=== PATIENT | male | born 1990 | race Caucasian/White ===

== ENCOUNTER 2019-04-01 16:17 | Observation (INO) | payer OTHER ==
[2019-04-01] VITALS (8 sets, daily range): BP systolic 116–135; BP diastolic 61–77
[~2019-04-01] VITALS: Ht 175.3 cm; Wt 108.9 kg
[2019-04-01] MEDS ORDERED: AMPH20TA18 PO (16:27)
--- NOTE | 2019-04-01 16:29 | ER Report ---
History and Physical Time Seen By MD: 16:25 Hx. of Stated Complaint: rlq pain since last night HPI/ROS CHIEF COMPLAINT: Abdominal pain HISTORY OF PRESENT ILLNESS: This is a 28-year-old male who presents to the emergency department for abdominal pain per patient states that last night around 9:00 he developed a 20 of right-sided abdominal pain, was not too bad, remained about the same throughout today, however about 2 hours ago of the right lower quadrant pain began to intensify, developing nausea no vomiting. Last n ormal bowel movement was 2 hours ago. No fevers or chills. Denies chest pain or shortness of breath. Denies dysuria or flank pain. REVIEW OF SYSTEMS: Constitutional: No fever, no chills. Eyes: No discharge. ENT: No sore throat. Cardiovascular: No chest pain, no palpitations. Respiratory: No cough, no shortness of breath. Gastrointestinal: As above. Genitourinary: No hematuria. Musculoskeletal: No back pain. Skin: No rashes. Neurological: No headache. Allergies: Coded Allergies: No Known Drug Allergies (Unverified , 04/01/19) Home Meds Reported Medications Amphet Asp/Amphet/D-Amphet (ADDERALL 20 MG TABLET) 20 Mg Tablet, 20 MG PO 04/01/19 Past Medical/Surgical History Patient has no significant past medical or surgical history. Reviewed Nurses Notes: Yes Constitutional Vital Sign - Last 24 Hours 04/01/19 04/01/19 04/01/19 04/01/19 16:24 16:30 17:00 17:30 Temp 98.2 Pulse 97 95 88 94 Resp 20 B/P (MAP) 147/93 Pulse Ox 91 91 89 93 Physical Exam General Appearance: The patient is alert, has no immediate need for airway protection and no signs of toxicity. Eyes: Pupils equal and round no pallor or injection. ENT, Mouth: Mucous membranes are moist. Respiratory: There are no retractions, lungs are clear to auscultation. Cardiovascular: Regular rate and rhythm. No murmurs, clicks or rubs. Gastrointestinal: Abdomen is soft, tenderness over McBurney's point, positive rebound tenderness in the right lower quadrant, positive psoas sign, negative Hawkins sign. no masses, bowel sounds normal. Neurological: Alert and oriented 4. Moving all extremities. Following all commands. No focal neuro deficits. Skin: Warm and dry, no rashes. Musculoskeletal: Neck is supple non tender. Extremities are nontender, nonswollen and have full range of motion. DIFFERENTIAL DIAGNOSIS: After history and physical exam differential diagnosis was considered for abdominal pain including but not limited to appendicitis, cholecystitis, gastritis and urinary tract infection. Medical Decision Making Data Points Result Diagram: 04/01/19 1632 04/01/19 1632 Laboratory Hematology Test 04/01/19 16:32 Red Blood Count 5.77 M/uL (4.00-5.60) Mean Corpuscular Volume 88.4 fL (80.0-96.0) Mean Corpuscular Hemoglobin 30.2 pg (26.0-33.0) Mean Corpuscular Hemoglobin Concent 34.2 g/dL (32.0-36.0) Red Cell Distribution Width 13.3 % (11.5-14.5) Mean Platelet Volume 8.2 fL (7.2-11.1) Neutrophils (%) (Auto) 76.4 % (39.4-72.5) Lymphocytes (%) (Auto) 13.0 % (17.6-49.6) Monocytes (%) (Auto) 9.3 % (4.1-12.4) Eosinophils (%) (Auto) 0.6 % (0.4-6.7) Basophils (%) (Auto) 0.7 % (0.3-1.4) Nucleated RBC Relative Count (auto) 0.0 /100WBC Neutrophils # (Auto) 10.3 K/uL (2.0-7.4) Lymphocytes # (Auto) 1.8 K/uL (1.3-3.6) Monocytes # (Auto) 1.3 K/uL (0.3-1.0) Eosinophils # (Auto) 0.1 K/uL (0.0-0.5) Basophils # (Auto) 0.1 K/uL (0.0-0.1) Nucleated RBC Absolute Count (auto) 0.00 K/uL Sodium Level 140 mmol/L (137-145) Potassium Level 4.0 mmol/L (3.5-5.0) Chloride Level 102 mmol/L (98-107) Carbon Dioxide Level 23 mmol/L (22-30) Blood Urea Nitrogen 11 mg/dl (9-21) Creatinine 1.00 mg/dl (0.66-1.25) Glomerular Filtration Rate Calc > 60.0 Random Glucose 98 mg/dl (75-110) Calcium Level 9.7 mg/dl (8.4-10.2) Total Bilirubin 0.9 mg/dl (0.2-1.3) Aspartate Amino Transf (AST/SGOT) 26 U/L (0-35) Alanine Aminotransferase (ALT/SGPT) 50 U/L (0-56) Alkaline Phosphatase 75 U/L (0-126) Total Protein 8.0 g/dl (6.3-8.2) Albumin 4.7 g/dl (3.5-5.0) Chemistry Test 04/01/19 16:32 White Blood Count 13.5 k/uL (4.5-11.0) Red Blood Count 5.77 M/uL (4.00-5.60) Hemoglobin 17.4 g/dL (14.0-18.0) Hematocrit 51.0 % (42.0-52.0) Mean Corpuscular Volume 88.4 fL (80.0-96.0) Mean Corpuscular Hemoglobin 30.2 pg (26.0-33.0) Mean Corpuscular Hemoglobin Concent 34.2 g/dL (32.0-36.0) Red Cell Distribution Width 13.3 % (11.5-14.5) Platelet Count 266 K/uL (150-450) Mean Platelet Volume 8.2 fL (7.2-11.1) Neutrophils (%) (Auto) 76.4 % (39.4-72.5) Lymphocytes (%) (Auto) 13.0 % (17.6-49.6) Monocytes (%) (Auto) 9.3 % (4.1-12.4) Eosinophils (%) (Auto) 0.6 % (0.4-6.7) Basophils (%) (Auto) 0.7 % (0.3-1.4) Nucleated RBC Relative Count (auto) 0.0 /100WBC Neutrophils # (Auto) 10.3 K/uL (2.0-7.4) Lymphocytes # (Auto) 1.8 K/uL (1.3-3.6) Monocytes # (Auto) 1.3 K/uL (0.3-1.0) Eosinophils # (Auto) 0.1 K/uL (0.0-0.5) Basophils # (Auto) 0.1 K/uL (0.0-0.1) Nucleated RBC Absolute Count (auto) 0.00 K/uL Glomerular Filtration Rate Calc > 60.0 Calcium Level 9.7 mg/dl (8.4-10.2) Total Bilirubin 0.9 mg/dl (0.2-1.3) Aspartate Amino Transf (AST/SGOT) 26 U/L (0-35) Alanine Aminotransferase (ALT/SGPT) 50 U/L (0-56) Alkaline Phosphatase 75 U/L (0-126) Total Protein 8.0 g/dl (6.3-8.2) Albumin 4.7 g/dl (3.5-5.0) Urinalysis Test 04/01/19 16:32 EKG/Imaging Imaging PATIENT NAME: Scottie Patterson : 1990 MR: [id number] V: [id number] EXAM DATE: ORDERING PHYSICIAN: PEE ALFARO TECHNOLOGIST: Location[place] [facility] [place] Patient: Scottie Patterson : 1990 Visit/Account:[id number] Date of Sevice: 04/01/2019 CT ABDOMEN PELVIS W/ CON HISTORY: RLQ pain TECHNIQUE: Following administration of IV contrast contiguous axial images acquired through the abdomen/pelvis. Coronal and sagittal reformatting also performed.Dose Lowering Technique One of the following dose optimization techniques was utilized in the performance of this exam: Automated exposure control; adjustment of the mA and/or kV according to the patient's size; or use of an iterative reconstruction technique. Specific details can be referenced in the facility's radiology CT exam operational policy. CONTRAST: 75 mL Isovue-370 COMPARISON: None. FINDINGS: Visualized lung bases: Negative. Hepatobiliary: Negative. Spleen: Negative. Adrenals: Negative. Pancreas: Negative. Kidneys ureters or bladder: Round subcentimeter hypodensity upper pole of the left kidney likely represents a cyst although is too small to characterize. Genitalia: Negative. GI: The appendix is markedly dilated, fluid-filled with thickening and enhancement of its wall. The appendix measures up to 1.6 cm in diameter. There is a 7 mm appendicolith. There are infiltrative changes seen in the periappendiceal fat and a small amount of adjacent fluid in the right paracolic gutter. Free intraperitoneal air is not identified. An organized abscess is not seen. Vessels/spaces/nodes: There several mildly prominent mesenteric lymph nodes in the right lower quadrant likely reactive. A telephone claims representative node measures 1.4 x 0.7 cm Bones/soft tissues: Negative. Additional findings: None pertinent. IMPRESSION: Findings are consistent with acute appendicitis as detailed above. There is a small amount of adjacent fluid in the right paracolic gutter although a defined abscess is not seen. There is also no evidence of free intraperitoneal air. There are several mildly prominent mesenteric lymph nodes the right lower quadrant which are likely reactive. Results were called to PEE ALFARO at 04/01/2019 5:13 PM. Report Dictated By: Amna Johnson MD at 04/01/2019 5:09 PM Report E-Signed By: Amna Johnson MD at 04/01/2019 5:21 PM WSN:GLADYS ED Course/Re-evaluation Clinical Indication for ER IV: Hydration, IV Access ED Course Patient was admitted to room. A history and physical were obtained. Differential diagnoses were considered. An IV was started. A CBC, CMP, UA were collected. A C T of the abdomen and pelvis positive for an acute appendicitis. CBC showing white count of 13.5 with a left shift. Chemistry unremarkable, negative UA. I did review the results with the patient. I also contacted Dr. Alba, the general surgeon on-call as noted below, she is accepting the patient and he will be taken directly to the operating room for acute appendicitis. 04/01/2019 5:17:59 pm I did speak with radiology, patient was positive for appendicitis. I did speak with patient. I have call out to Dr. Alba, the general surgeon on-call. Last fluid intake was about one hour ago, last food intake was around 8:30 this morning. 04/01/2019 5:26:46 pm I did speak with Dr. Alba, the general surgeon on-call we did review the case, she will be in shortly to evaluate the patient, and likely take the patient to surgery. 04/01/2019 5:49:[address] Alba is here, she is discussing surgery with the patient. Decision to Disposition Date: Apr 01, 2019 Decision to Disposition Time: 18:04 Depart Departure Latest Vital Signs Vital Signs Date Time Temp Pulse Resp B/P (MAP) Pulse Ox O2 Delivery O2 Flow Rate FiO2 04/01/19 17:30 94 93 04/01/19 16:24 98.2 20 147/93 Impression: Primary Impression: Acute appendicitis Condition: Improved Disposition: ADMIT FROM ER TO OR Problem Qualifiers Primary Impression: Acute appendicitis Acute appendicitis type: with localized peritonitis Appendicitis gangrene presence: without gangrene Appendicitis perforation presence: without perforation Appendicitis abscess presence: without abscess Qualified Codes: K35.30 - Acute appendicitis with localized peritonitis, without perforation or gangrene PEE ALFARO-CARLITA Apr 01, 2019 16:29
[2019-04-01] MEDS ORDERED: NS(*) 0.9% 1000 ML BAG 1,000 ML IV ONE (16:42)
[2019-04-01] MEDS ORDERED: MORPHINE 4 MG/ML SDV IVP ONE (16:45)
[2019-04-01] MEDS ORDERED: ONDANSETRON 4 MG/2 ML VIAL IVP ONE (16:45)
[2019-04-01] MEDS ORDERED: IOPAMIDOL 76% 100 ML INFUS BTL 100 ML ONE (16:57)
[2019-04-01 17:00] LABS: PLATELET COUNT, AUTOMATED 266 K/uL (150-450)
--- NOTE | 2019-04-01 17:24 | RADIOLOGY IMAGING REPORT ---
FACILITY: [facility] PATIENT NAME: Scottie Patterson : 1990 MR: [id number] V: [id number] EXAM DATE: ORDERING PHYSICIAN: PEE ALFARO TECHNOLOGIST: Location: [facility] Patient: Scottie Patterson : 1990 Visit/Account:[id number] Date of Sevice: 04/01/2019 CT ABDOMEN PELVIS W/ CON HISTORY: RLQ pain TECHNIQUE: Following administration of IV contrast contiguous axial images acquired through the abdom en/pelvis. Coronal and sagittal reformatting also performed.Dose Lowering Technique One of the following dose optimization techniques was utilized in the performance of this exam: Autom ated exposure control; adjustment of the mA and/or kV according to the patient's size; or use of an i terative reconstruction technique. Specific details can be referenced in the facility's radiology C T exam operational policy. CONTRAST: 75 mL Isovue-370 COMPARISON: None. FINDINGS: Visualized lung bases: Negative. Hepatobiliary: Negative. Spleen: Negative. Adrenals: Negative. Pancreas: Negative. Kidneys ureters or bladder: Round subcentimeter hypodensity upper pole of the left kidney likely repr esents a cyst although is too small to characterize. Genitalia: Negative. GI: The appendix is markedly dilated, fluid-filled with thickening and enhancement of its wall. The appendix measures up to 1.6 cm in diameter. There is a 7 mm appendicolith. There are infiltrative changes seen in the periappendiceal fat and a small amount of adjacent fluid in the right paracolic g utter. Free intraperitoneal air is not identified. An organized abscess is not seen. Vessels/spaces/nodes: There several mildly prominent mesenteric lymph nodes in the right lower quadr ant likely reactive. A hobbies and crafts sales representative node measures 1.4 x 0.7 cm Bones/soft tissues: Negative. Additional findings: None pertinent. IMPRESSION: Findings are consistent with acute appendicitis as detailed above. There is a small amount of adjace nt fluid in the right paracolic gutter although a defined abscess is not seen. There is also no evid ence of free intraperitoneal air. There are several mildly prominent mesenteric lymph nodes the right lower quadrant which are likely r eactive. Results were called to PEE ALFARO at 04/01/2019 5:13 PM. Report Dictated By: Amna Johnson MD at 04/01/2019 5:09 PM Report E-Signed By: Amna Johnson MD at 04/01/2019 5:21 PM WSN:[email or web address]
[2019-04-01] MEDS ORDERED: PIPERACILLIN/TAZO*3.375GM VIAL 3.375 GM in NS(*) 0.9% 100 ML MINI-BAG 100 ML IVPB ONE (17:35)
[2019-04-01] MEDS ORDERED: FAMOTIDINE(*) 20MG/50ML PREMIX 50 ML IVPB ONE (17:45)
[2019-04-01] MEDS ORDERED: NORMOSOL R SOLN(*) 1000 ML BAG 1,000 ML IV ONE (17:45)
[2019-04-01] MEDS ORDERED: ROCURONIUM BROM 10 MG/ML 10 ML ONE (17:56)
[2019-04-01] MEDS ORDERED: ONDANSETRON 4 MG/2 ML VIAL ONE (17:56)
[2019-04-01] MEDS ORDERED: fentaNYL CITR 250 MCG/5 ML AMP ONE (17:56)
[2019-04-01] MEDS ORDERED: DEXAMETHASONE SOD 4 MG/ML VIAL ONE (17:56)
[2019-04-01] MEDS ORDERED: PROPOFOL EMUL(*) 10MG/ML 20 ML 20 ML ONE (17:56)
[2019-04-01] MEDS ORDERED: SUGAMMADEX SOD 200 MG/2 ML SDV ONE ×2 (17:56→19:31)
[2019-04-01] MEDS ORDERED: LIDOCAINE MPF 1% 5 ML VIAL ONE (17:56)
[2019-04-01] MEDS ORDERED: KETAMINE HCL 200 MG/20 ML MDV ONE (17:59)
--- NOTE | 2019-04-01 18:06 | Gen Surgery History & Physical ---
History of Present Illness Chief Complaint RLQ abdominal pain History of Present Illness 28 yo male with 24 hours of increasingly severe RLQ abdominal pain. +NV, no D. +FCS. No s/s. Pain exacerbated with movement. No prior similar s/s. No hx PUD, IBD. History Unable To Obtain Past Medical: Home Meds Reported Medications Amphet Asp/Amphet/D-Amphet (ADDERALL 20 MG TABLET) 20 Mg Tablet, 20 MG PO 04/01/19 Allergies: Coded Allergies: No Known Drug Allergies (Unverified , 04/01/19) Review of Systems All Systems Reviewed/Normal: Yes, Except as Noted Gastrointestinal: Other (se HPI) Exam General Appearance: Alert, Awake, No Acute Distress, Afebrile Neuro: No Gross deficits ENT: Normal Neck: No Masses Cardiovascular: Normal Rhythm & Peripheral Pulses, Regular Rate and Rhythm, No Edema, No JVD Respiratory: No Respiratory Distress, Clear to Auscultation GI: Other (soft, ++ RLQ peritoneal signs with + guard. No mass or hernia.) Musculoskeletal: No Weakness/Pain Extremities: Soft and Non Tender, Warm, Pulses, Perfused Integumentary: Skin Intact without Lesion / Mass Psych: Alert & Oriented X3, Appropriate Mood & Affect Medical Decision Making Data Points Result Diagram: 04/01/19 1632 04/01/19 1632 EKG / Imaging Monitor Interpretation: Normal Sinus Rhythm Pre-Admit Course Medical Record Review: Yes Assessment and Plan Problems: (1) Appendicitis, acute Status: Acute Assessment & Plan: 28 yo male with acute appendicitis. He has been recommended to undergo lap, possible open, appendectomy. Proc, risks, benefits, alternative treatment discussed at length. He understands risk of bleeding, leak, abscess, damage to viscera, need for additional intervention. All questions answered. Informed consent signed. Time Spent: > 30 min Venous Thromboembolism VTE Risk Physician Assess for VTE Risk: Yes Patient's VTE Risk: Low VTE Diagnostic Test 2 Days Prior to Admit: No Antithrombotics Is Pt On Any Antithrombotics?: No CHARLEY ARAIZA MD Apr 01, 2019 18:05
[2019-04-01] MEDS ORDERED: BUPIVACAIN 0.25% INJ 50ML VIAL ONE (18:09)
[2019-04-01] MEDS: PIPERACILLIN/TAZO*3.375GM VIAL 3.375 GM in NS(*) 0.9% 100 ML MINI-BAG 100 ML IVPB SCH ×2 (18:10→23:19)
[2019-04-01] MEDS ORDERED: ESMOLOL 10 MG/ML 10ML SDV ONE (19:31)
[2019-04-01] MEDS ORDERED: fentaNYL CITR 100 MCG/2 ML AMP ONE ×3 (19:32→20:19)
--- NOTE | 2019-04-01 20:09 | Post Operative Progress Note ---
Post Operative Progress Note Date: Apr 01, 2019 Time: 20:01 Surgeon: Charley Alba MD [facility] Hogshead Opener: none Anesthesia: Nash Rand MD GET Pre-Op Diagnosis: acute appendicitis Post-Op Diagnosis: same Findings: significant inflammation with agustin pus, dense adhesions to retroperitoneum/retrocecal; Mesoappendix with marked edema > 2 X 2.5 cm Procedure(s): Laparoscopic appendectomy Specimen Removed:(May be N/A): appendix Complications: none Total Tourniquet Time: NA Splint: NA Fluids: see anesthesia record Estimated Blood Loss: < 25 ml Date OP Note Dictated: Apr 01, 2019 Time OP Note Dictated: 20:04 ([id number]) CHARLEY ALBA MD Apr 01, 2019 20:09
[2019-04-01] MEDS ORDERED: KCL/D1/2NS 20 MEQ 1000 ML 1,000 ML IV PRN (20:11)
[2019-04-01] MEDS ORDERED: ACETAMINOPHEN 325 MG TAB PO PRN (20:15)
[2019-04-01] MEDS ORDERED: ONDANSETRON 4 MG/2 ML VIAL IVP PRN ×2 (20:15→22:50)
[2019-04-01] MEDS ORDERED: APAP/HYDROCODONE 325/5 TAB PO PRN (20:15)
[2019-04-01] MEDS ORDERED: NALOXONE HCL 0.4 MG/ML VIAL IVP PRN (20:15)
[2019-04-01] MEDS ORDERED: PROMETHAZINE 25 MG/ML 1 ML AMP ONE (20:20)
[2019-04-01] MEDS ORDERED: MORPHINE 4 MG/ML SDV IVP PRN (22:40)
[2019-04-01] MEDS ORDERED: SUMA25TA26 PO (23:08)
[2019-04-01] MEDS ORDERED: CYCL10TA29 PO (23:10)
[2019-04-01] MEDS: traMADol 50 MG TAB PO PRN (23:17)
[2019-04-02] VITALS: BP 112/66
[2019-04-02] MEDS ORDERED: PIPERACILLIN/TAZO*3.375GM VIAL 3.375 GM in NS(*) 0.9% 100 ML MINI-BAG 100 ML IVPB SCH
[2019-04-02 01:00] VITALS: BP 101/56
--- NOTE | 2019-04-02 01:40 | OPERATIVE REPORT 1 ---
EVENT DATE: April 01, 2019 SURGEON: Ashwini Alba MD, [facility] ANESTHESIOLOGIST: Nash Rand MD ANESTHESIA: General endotracheal anesthesia. PREOPERATIVE DIAGNOSIS Acute appendicitis. POSTOPERATIVE DIAGNOSIS Acute appendicitis. PROCEDURE PERFORMED Laparoscopic appendectomy. INDICATIONS FOR PROCEDURE This patient is a 28-year-old male with peritoneal signs in the right lower quadrant, with markedly abnormal appendix on abdominal CT scan. He was brought to the emergency room at this time for appendectomy. FINDINGS AT THE TIME OF OPERATION The patient had marked inflammation and induration with acute suppurative appendicitis, with agustin pus in the right lower quadrant. The appendix was densely adherent to the retroperitoneum in a retrocecal position. The mesoappendix was markedly inflamed, measuring over 2 x 2.5 x 2 cm. No agustin perforation was identified of the appendix. DESCRIPTION OF PROCEDURE On 04/01/2019, patient was brought to the operating room, placed in the supine position. Appropriate lines and monitors were placed. He was induced and intubated under general anesthesia without difficulty. He was then prepped and draped in the usual sterile manner. Pneumoperitoneum was established at the infraumbilical position using standard open technique. Skin, subcutaneous and fascial tissues were divided under direct vision using sharp dissection. The peritoneal cavity was entered under direct vision, and a 10 mm Len trocar was inserted. Under direct vision, two additional trocars were placed, a 5 mm along the right lower midline and a 12 mm in the right upper quadrant. The patient was then placed in the Trendelenburg position. The markedly abnormal appendix was identified and dissected free from its position within the right lower quadrant/retroperitoneum using a combination of sharp as well as blunt dissection. The mesoappendix was opened immediately adjacent to the base of the appendix and divided at this level with the laparoscopic bowel stapler. The mesoappendix itself was then divided with two firings of a laparoscopic vascular staple. The appendix was placed in the Endopouch and removed through the abdominal cavity. The fascia at the right upper quadrant incision required significant extension as well as a skin incision to remove the enlarged specimen. Once it was completed, the mesoappendix required several Ligaclips for hemostasis. The operative field was irrigated copiously with sterile saline, and hemostasis was intact. The fascia at the right upper quadrant was closed with two 0 Vicryl sutures placed with the Conner-Neda device. All trocars were removed under direct vision. The sites were hemostatic. Pneumoperitoneum was evacuated. The fascia at the infraumbilical site was closed with two stay sutures of #1 Vicryl. The wounds were irrigated with sterile saline. The wounds were then infiltrated with 40 mL of 0.25% Marcaine. Skin edges were reapproximated with running subcuticular 4-0 PDS. Wounds were dressed with Mastisol, Steri-Strips and dry sterile gauze. Patient was then taken to the recovery room in stable condition. He tolerated the procedure well. Estimated blood loss was less than 20 mL. Final sponge and needle counts were reported correct x2. MTDD
[2019-04-02 02:00] VITALS: BP 102/63
[2019-04-02 05:29] LABS: PLATELET COUNT, AUTOMATED 233 K/uL (150-450)
[2019-04-02] MEDS: traMADol 50 MG TAB PO PRN ×2 (05:36→12:00)
[2019-04-02] MEDS: PIPERACILLIN/TAZO*3.375GM VIAL 3.375 GM in NS(*) 0.9% 100 ML MINI-BAG 100 ML IVPB SCH ×2 (05:38→13:01)
[2019-04-02] MEDS ORDERED: DOCU-416 PO (07:03)
[2019-04-02] MEDS ORDERED: TRAM-420 PO (07:03)
--- NOTE | 2019-04-02 07:06 | Short(Outpt) Discharge Summary ---
Discharge Summary Reason for Hosp/Final Diag: (1) Appendicitis, acute Status: Acute Hospital Course & Plan: 28 yo male with acute appendicitis. He has been recommended to undergo lap, possible open, appendectomy. Proc, risks, benefits, alternative treatment discussed at length. He understands risk of bleeding, leak, abscess, damage to viscera, need for additional intervention. All questions answered. Informed consent signed. 04/02/19: POD#1 s/p lap appy. Doing well. Regular diet. 1 more dose of IV abx then stop. D/C to home later today if remains afebrile and tolerating diet. Departure Discharge to: Home, Self Care Discharge Instructions Home Meds Active Scripts Docusate Sodium (COLACE) 100 Mg Capsule, 1 CAP PO BID, #30 CAP 0 Refills TAKE WITH A FULL GLASS OF WATER Prov:MICHELE BARRETT MD 04/02/19 Tramadol Hcl (TRAMADOL HCL) 50 Mg Tablet, 1 TAB PO Q4H PRN for PAIN, #14 TAB 0 Refills Prov:MICHELE BARRETT MD 04/02/19 Reported Medications Cyclobenzaprine Hcl (CYCLOBENZAPRINE HCL) 10 Mg Tablet, 10 MG PO PRN 04/01/19 Sumatriptan Succinate (IMITREX) 25 Mg Tablet, 25 MG PO ONCE 04/01/19 Amphet Asp/Amphet/D-Amphet (ADDERALL 20 MG TABLET) 20 Mg Tablet, 20 MG PO QDAY 04/01/19 Follow up Referrals: General Surgery - 04/10/19 @ Surgery, General with MICHELE BARRETT MD You have a follow up appointment scheduled with Dr. Barrett on 04/10/19, at 11:45am. Diet: Regular Activity: As Tolerated Special Instructions: You may remove the white surgical dressings on 04/03/19, then you can shower. After showering, leave the incisions open to air but leave the steristrips in place until they fall off on their own. Do not immerse the incisions for 2 weeks. Copies to: CHARLEY ARAIZA MD ; Problem Qualifiers (1) Appendicitis, acute: Acute appendicitis type: with localized peritonitis Appendicitis gangrene presence: without gangrene Appendicitis perforation presence: without perforation Appendicitis abscess presence: without abscess Qualified Codes: K35.30 - Acute appendicitis with localized peritonitis, without perforation or gangrene MICHELE BARRETT MD Apr 02, 2019 07:06
[2019-04-02 07:19] VITALS: BP 114/62
[2019-04-02 07:23] VITALS: Ht 175.3 cm; Wt 108.9 kg
[2019-04-02 12:49] VITALS: BP 111/73
== END 2019-04-02 13:14 | disposition home or self-care (01) ==
LOC: EDBD 16:17 → ER 16:25 → OR 17:55 → MED 21:05
PROVIDERS: ADMIT Surgery; ATTEND Surgery
DX: K35.30 Acute appendicitis with localized peritonitis, without perforation or gangrene (principal)
CPT/HCPCS: 36415; 44970; 74177; 81001; 85025; 88304; 96361; 96365; 96375; 99284; G0378; J1100; J2001; J2270; J2405; J2543; J2550; J2704; J3010; J3480; J3490; J7030; Q9967; 82040; 82247; 82310; 82374; 82435; 82565; 82947; 84075; 84132; 84155; 84295; 84450; 84460; 84520

== ENCOUNTER 2019-04-02 21:41 | Observation (INO) | payer OTHER ==
[~2019-04-02] VITALS: Ht 175.3 cm; Wt 108.9 kg
[~2019-04-02 21:41] MED LIST: AMPH20TA18 PO; CYCL10TA29 PO; DOCU-416 PO; SUMA25TA26 PO; TRAM-420 PO
--- NOTE | 2019-04-02 21:43 | ER Report ---
History and Physical Time Seen By MD: 21:43 HPI/ROS CHIEF COMPLAINT: Abdominal pain, cramps, difficulty breathing HISTORY OF PRESENT ILLNESS: 28-year-old male who was 1 day postop from a laproscopic appendectomy performed by Dr. Doug Alba who was discharged yesterday around 2 PM. Patient did not get his prescriptions filled. Patient states she did a moderate amount of walking yesterday around release. Tonight he developed severe crampy abdominal pain with abdominal distention. He's had no bowel movement or passed no gas since he left the hospital. He states his last meal was biscuits and gravy yesterday morning prior to discharge. REVIEW OF SYSTEMS: Respiratory: No cough, no dyspnea. Cardiovascular: No chest pain, no palpitations. Gastrointestinal: As above Musculoskeletal: No back pain. Allergies: Coded Allergies: No Known Drug Allergies (Unverified , 04/02/19) Home Meds Active Scripts Docusate Sodium (COLACE) 100 Mg Capsule, 1 CAP PO BID, #30 CAP 0 Refills TAKE WITH A FULL GLASS OF WATER Prov:MICHELE BARRETT MD 04/02/19 Tramadol Hcl (TRAMADOL HCL) 50 Mg Tablet, 1 TAB PO Q4H PRN for PAIN, #14 TAB 0 Refills Prov:MICHELE BARRETT MD 04/02/19 Reported Medications Cyclobenzaprine Hcl (CYCLOBENZAPRINE HCL) 10 Mg Tablet, 10 MG PO PRN 04/01/19 Sumatriptan Succinate (IMITREX) 25 Mg Tablet, 25 MG PO ONCE PRN for MIGRAINE 04/01/19 Amphet Asp/Amphet/D-Amphet (ADDERALL 20 MG TABLET) 20 Mg Tablet, 20 MG PO QDAY 04/01/19 Reviewed Nurses Notes: Yes Old Medical Records Reviewed: Yes Hx Smoking: Yes Smoking Status: Current: Every Day Smoker Hx Alcohol Use: Yes Constitutional Vital Sign - Last 24 Hours 04/02/19 04/02/19 04/02/19 04/02/19 21:48 21:48 22:00 22:11 Temp 98.8 Pulse 89 80 Resp 14 B/P (MAP) 141/85 128/74 (92) Pulse Ox 84 94 O2 Delivery Room Air O2 Flow Rate 2.0 6/13/19 6/13/19 6/13/19 6/13/19 22:40 22:41 22:46 23:00 Pulse 72 58 B/P (MAP) 114/65 (81) 121/68 (85) Pulse Ox 96 96 04/02/19 04/02/19 04/02/19 04/02/19 23:01 23:16 23:30 23:31 Pulse 60 60 74 B/P (MAP) 123/71 (88) Pulse Ox 97 97 91 04/02/19 04/02/19 04/02/19 04/02/19 23:46 23:50 23:50 23:57 Pulse 82 86 97 Resp 18 18 Pulse Ox 74 92 O2 Delivery Room Air 04/03/19 04/03/19 04/03/19 04/03/19 00:00 00:01 00:06 00:21 Pulse 87 92 78 B/P (MAP) 120/81 (94) Pulse Ox 94 93 96 Physical Exam Vital signs stable, pulse ox 84% on room air, patient with obvious splinting secondary to abdominal distention., Slightly pale appearing, skin warm and dry General Appearance: The patient is alert, has no immediate need for airway protection and no current signs of toxicity. Moderate distress HEENT: Pupils equal and round no injection. Oropharynx without redness or exudate Respiratory: Chest is non tender, lungs are clear to auscultation. Cardiac: regular rate and rhythm Gastrointestinal: Abdomen is soft, moderate distention, moderate tenderness, no masses, bowel sounds normal. Incisions intact without induration, redness Musculoskeletal: Neck: Neck is supple and non tender. Extremities have full range of motion and are non tender. Skin: No rashes or lesions. DIFFERENTIAL DIAGNOSIS: After history and physical exam differential diagnosis was considered for abdominal pain including but not limited to appendicitis, cholecystitis, gastritis and urinary tract infection. Postoperative infection, postoperative ileus, postoperative complications Medical Decision Making Data Points Result Diagram: 04/04/1952504/04/19525 Laboratory Hematology Test 04/02/19 21:57 Lactate 1.1 mmol/L (0.7-2.1) Total Bilirubin 0.6 mg/dl (0.2-1.3) Aspartate Amino Transf (AST/SGOT) 28 U/L (0-35) Alanine Aminotransferase (ALT/SGPT) 39 U/L (0-56) Alkaline Phosphatase 55 U/L (0-126) Total Protein 7.2 g/dl (6.3-8.2) Albumin 4.0 g/dl (3.5-5.0) Amylase Level 89 U/L (0-110) Lipase 35 U/L (23-300) Chemistry Test 04/02/19 21:57 Lactate 1.1 mmol/L (0.7-2.1) Total Bilirubin 0.6 mg/dl (0.2-1.3) Aspartate Amino Transf (AST/SGOT) 28 U/L (0-35) Alanine Aminotransferase (ALT/SGPT) 39 U/L (0-56) Alkaline Phosphatase 55 U/L (0-126) Total Protein 7.2 g/dl (6.3-8.2) Albumin 4.0 g/dl (3.5-5.0) Amylase Level 89 U/L (0-110) Lipase 35 U/L (23-300) EKG/Imaging Imaging Results: CT scan of the abdomen and pelvis with IV contrast was obtained. The results of the study are CT ABDOMEN PELVIS W/ CON HISTORY: Status post laparoscopic appendectomy April 01. Now with severe lower abdominal pain. No bowel movement since surgery and very little flatulence. COMPARISON: 04/01/2019. TECHNIQUE: Axial images were obtained from the lung bases through the symphysis pubis with intravenous contrast. Sagittal and coronal reformats were performed. One of the following dose optimization techniques was utilized in the performance of this exam: Automated exposure control; adjustment of the mA and/or kV according to the patient's size; or use of an iterative reconstruction technique. Specific details can be referenced in the facility's radiology CT exam operational policy. CONTRAST: 75 mL IV Isovue-370. FINDINGS: LOWER CHEST: There is mild bibasilar atelectasis. Trace left pleural effusion. LIVER: Normal. GALLBLADDER/BILIARY: Normal. PANCREAS: Normal. SPLEEN: Normal. ADRENALS: Normal. KIDNEYS/URETERS/BLADDER: There is a 1 cm left anterior mid renal cyst. Right kidney is normal. Ureters and bladder are normal. GI/MESENTERY/PERITONEAL CAVITY: There is a moderate to large amount of stool in the cecum and the proximal ascending colon. There is a paucity of stool in the rest of the colon. There is diffuse gaseous distention of colon. There is no bowel obstruction. There is no wall thickening or pericolonic stranding. Status post appendectomy. There is trace free fluid in the right lower quadrant. There is a small amount of intra-abdominal free air related to recent surgery. No abscess or drainable fluid collection. VESSELS: No atherosclerotic disease. No aneurysm. No dissection. NODES: Normal. PELVIS: There are scattered phleboliths. BONES/VERTEBRA/SOFT TISSUES: There are a few Schmorl nodes. There is mild degenerative change of the spine. IMPRESSION: 1. Small amount of pneumoperitoneum and trace free fluid in the right lower qu adrant, compatible with recent surgery. No abscess or drainable fluid collection. 2. There is a moderate to large amount of stool in the cecum and proximal ascending colon, and there is gaseous distention of colon. No bowel obstruction. The study was read by the radiologist. I viewed the images myself on the PACS system. ED Course/Re-evaluation Clinical Indication for ER IV: Hydration, IV Access ED Course Patient was admitted to an examination room. H&P was done. The differential diagnosis was considered. Patient with acute abdominal pain, sharp, crampy abdominal pain with pain on inspiration. Vital signs stable, afebrile, patient was treated with IV fluids, Zofran, fentanyl. Diagnostic evaluation shows an elevated white blood cell count of 14,000. Only slightly elevated from what he had prior to discharge. A CT scan of the abdomen and pelvis with contrast was performed to rule out postoperative complications. It showed appropriate postoperative changes. There was no evidence of abscess formation or free air that's in excess, old be expected. Patient was mildly hypoxic. I think mostly from splinting. I do not think he has a pulmonary embolism. Patient was given a DuoNeb. 04/03/2019 12:20:10 am case discussed with Dr. Winkler, general surgery on-call, who would like the patient admitted. Brief holding orders were written. Decision to Disposition Date: Apr 02, 2019 Decision to Disposition Time: 23:12 Depart Departure Latest Vital Signs Vital Signs Date Time Temp Pulse Resp B/P (MAP) Pulse Ox O2 Delivery O2 Flow Rate FiO2 04/03/19 00:21 78 96 04/03/19 00:00 120/81 (94) 04/02/19 23:57 18 04/02/19 23:50 Room Air 04/02/19 21:48 98.8 04/02/19 21:48 2.0 Impression: Primary Impression: Abdominal pain Additional Impressions: Status post appendectomy Ileus following gastrointestinal surgery Condition: Improved Disposition: Admitted from ER Problem Qualifiers Primary Impression: Abdominal pain Abdominal location: lower abdomen, unspecified Qualified Codes: R10.30 - Lower abdominal pain, unspecified CHRISTINA BROOKS DO Apr 02, 2019 21:44
[2019-04-02] MEDS ORDERED: NS(*) 0.9% 1000 ML BAG 1,000 ML IV ONE (21:55)
[2019-04-02] MEDS ORDERED: fentaNYL CITR 100 MCG/2 ML AMP IVP ONE (21:55)
[2019-04-02] MEDS ORDERED: ONDANSETRON 4 MG ODT TABDP SL ONE (21:55)
[2019-04-02] MEDS ORDERED: ONDANSETRON 4 MG/2 ML VIAL IVP ONE ×2 (22:05)
[2019-04-02 22:07] LABS: PLATELET COUNT, AUTOMATED 247 K/uL (150-450)
[2019-04-02] MEDS ORDERED: IOPAMIDOL 76% 100 ML INFUS BTL 100 ML ONE (22:10)
--- NOTE | 2019-04-02 22:57 | RADIOLOGY IMAGING REPORT ---
FACILITY: [facility] PATIENT NAME: Scottie Patterson : 1990 MR: [id number] V: [id number] EXAM DATE: ORDERING PHYSICIAN: CHRISTINA BROOKS TECHNOLOGIST: Location: [facility] Patient: Scottie Patterson : 1990 Visit/Account:[id number] Date of Sevice: 04/02/2019 CT ABDOMEN PELVIS W/ CON HISTORY: Status post laparoscopic appendectomy April 01. Now with severe lower abdominal pain. No eric l movement since surgery and very little flatulence. COMPARISON: 04/01/2019. TECHNIQUE: Axial images were obtained from the lung bases through the symphysis pubis with intravenou s contrast. Sagittal and coronal reformats were performed. One of the following dose optimization techniques was utilized in the performance of this exam: Autom ated exposure control; adjustment of the mA and/or kV according to the patient's size; or use of an i terative reconstruction technique. Specific details can be referenced in the facility's radiology CT exam operational policy. CONTRAST: 75 mL IV Isovue-370. FINDINGS: LOWER CHEST: There is mild bibasilar atelectasis. Trace left pleural effusion. LIVER: Normal. GALLBLADDER/BILIARY: Normal. PANCREAS: Normal. SPLEEN: Normal. ADRENALS: Normal. KIDNEYS/URETERS/BLADDER: There is a 1 cm left anterior mid renal cyst. Right kidney is normal. Ureter s and bladder are normal. GI/MESENTERY/PERITONEAL CAVITY: There is a moderate to large amount of stool in the cecum and the pro ximal ascending colon. There is a paucity of stool in the rest of the colon. There is diffuse gaseous distention of colon. There is no bowel obstruction. There is no wall thickening or pericolonic stran ding. Status post appendectomy. There is trace free fluid in the right lower quadrant. There is a sma ll amount of intra-abdominal free air related to recent surgery. No abscess or drainable fluid collec tion. VESSELS: No atherosclerotic disease. No aneurysm. No dissection. NODES: Normal. PELVIS: There are scattered phleboliths. BONES/VERTEBRA/SOFT TISSUES: There are a few Schmorl nodes. There is mild degenerative change of the spine. IMPRESSION: 1. Small amount of pneumoperitoneum and trace free fluid in the right lower quadrant, compatible with recent surgery. No abscess or drainable fluid collection. 2. There is a moderate to large amount of stool in the cecum and proximal ascending colon, and there is gaseous distention of colon. No bowel obstruction. Report Dictated By: Ritu Dalton at 04/02/2019 10:45 PM Report E-Signed By: Ritu Dalton at 04/02/2019 10:52 PM WSN:[id number]
[2019-04-02] MEDS ORDERED: ALBUTEROL 2.5 MG/3 ML NEB NEB ONE (23:45)
[2019-04-03] VITALS (7 sets, daily range): BP systolic 113–126; BP diastolic 61–92; Ht 175.3 cm; Wt 108.9 kg
[2019-04-03] MEDS ORDERED: HYDROMORPHONE HCL 1 MG/ML SYRINGE IVP ONE (00:25)
[2019-04-03] MEDS ORDERED: ONDANSETRON 4 MG/2 ML VIAL IVP ONE (00:35)
[2019-04-03] MEDS: NS(*) 0.9% 1000 ML BAG 1,000 ML IV PRN ×2 (00:37→05:42)
[2019-04-03] MEDS ORDERED: HYDROmorphone HCL 2 MG/ML SDV IVP PRN (01:40)
[2019-04-03] MEDS ORDERED: ONDANSETRON 4 MG/2 ML VIAL IVP PRN ×2 (07:30→08:40)
[2019-04-03] MEDS ORDERED: NS(*) 0.9% 1000 ML BAG 1,000 ML IV PRN ×2 (08:39→14:29)
[2019-04-03] MEDS ORDERED: FLUSH 10 ML SYR IVP PRN (08:40)
[2019-04-03] MEDS ORDERED: ACETAMINOPHEN 325 MG TAB PO PRN (08:40)
[2019-04-03] MEDS ORDERED: SUMAtriptan SUCC 25MG TAB PO ONE (08:40)
[2019-04-03] MEDS ORDERED: IBUPROFEN 200 MG TAB PO PRN (08:40)
[2019-04-03] MEDS: PATIENT'S OWN MED PO SCH (09:00)
--- NOTE | 2019-04-03 09:21 | Gen Surgery History & Physical ---
History of Present Illness Chief Complaint Abdominal pain History of Present Illness 28yo male, POD#2 s/p uncomplicated lap appy for purulent, non-perforated appendicitis by Dr. Alba, discharged yesterday afternoon, presents to the ER with abdominal pain/cramps that start several hours after discharge. He reports passing flatus yesterday afternoon but stopped last evening and when he'd eat he'd develop a "sour" feeling in his abdomen. This has resolved this morning but he still feels "a little" bloated but he is passing flatus. He is hungry this morning. History Problems: (1) ADHD (attention deficit hyperactivity disorder) Status: Chronic Home Meds Active Scripts Docusate Sodium (COLACE) 100 Mg Capsule, 1 CAP PO BID, #30 CAP 0 Refills TAKE WITH A FULL GLASS OF WATER Prov:MICHELE BARRETT MD 04/02/19 Tramadol Hcl (TRAMADOL HCL) 50 Mg Tablet, 1 TAB PO Q4H PRN for PAIN, #14 TAB 0 Refills Prov:MICHELE BARRETT MD 04/02/19 Reported Medications Cyclobenzaprine Hcl (CYCLOBENZAPRINE HCL) 10 Mg Tablet, 10 MG PO PRN 04/01/19 Sumatriptan Succinate (IMITREX) 25 Mg Tablet, 25 MG PO ONCE 04/01/19 Amphet Asp/Amphet/D-Amphet (ADDERALL 20 MG TABLET) 20 Mg Tablet, 20 MG PO QDAY 04/01/19 Allergies: Coded Allergies: No Known Drug Allergies (Unverified , 04/02/19) Review of Systems All Systems Reviewed/Normal: Yes, Except as Noted Gastrointestinal: Abdominal Pain Exam General Appearance: Alert, Awake, No Acute Distress, Afebrile Neuro: No Gross deficits Eyes: PERRLA GI: Other (Soft, mild appropriate postop TTP, dressings removed, incisions all look good without erythema or drainage. Abdomen is mildly distended.) Extremities: Warm, Perfused Psych: Alert & Oriented X3, Appropriate Mood & Affect Medical Decision Making Data Points Result Diagram: 04/02/19215604/02/192156 Assessment and Plan Problems: (1) Ileus following gastrointestinal surgery Status: Acute Assessment & Plan: 04/03/19: Admit, was NPO overnight but he's feeling better this morning so will try regular diet. No signs of operative complication on CT. Will continue IV fluids until UOP picks up and urine becomes loft patternmaker. He's currently passing flatus. Will go slow on advancing diet today. Possibly home tomorrow if he does well today/tonight. (2) Status post appendectomy Status: Acute (3) Acute appendicitis Status: Resolved Condition Stable. Time Spent: < 30 min Venous Thromboembolism VTE Risk Physician Assess for VTE Risk: Yes Patient's VTE Risk: Low VTE Diagnostic Test 2 Days Prior to Admit: No Antithrombotics Is Pt On Any Antithrombotics?: No Problem Qualifiers (1) Acute appendicitis: Acute appendicitis type: with localized peritonitis Appendicitis gangrene presence: without gangrene Appendicitis perforation presence: without perforation Appendicitis abscess presence: without abscess Qualified Codes: K35.30 - Acute appendicitis with localized peritonitis, without perforation or gangrene MICHELE BARRETT MD Apr 03, 2019 09:21
[2019-04-03] MEDS: FAMOTIDINE 20 MG TAB PO SCH ×2 (09:38→20:47)
[2019-04-03] MEDS: ENOXAPARIN 40 MG/0.4ML SYR SC SCH (09:38)
[2019-04-03] MEDS: DOCUSATE SODIUM 100 MG CAP PO SCH ×2 (09:38→20:47)
[2019-04-03] MEDS ORDERED: BISACODYL 10 MG SUPP PR ONE (19:25)
[2019-04-03] MEDS ORDERED: BISACODYL 10 MG SUPP PR PRN (19:25)
[2019-04-04 05:36] LABS: PLATELET COUNT, AUTOMATED 225 K/uL (150-450)
[2019-04-04 07:18] VITALS: BP 142/86
--- NOTE | 2019-04-04 08:41 | Short(Outpt) Discharge Summary ---
Discharge Summary Reason for Hosp/Final Diag: (1) Ileus following gastrointestinal surgery Status: Acute Hospital Course & Plan: 04/03/19: Admit, was NPO overnight but he's feeling better this morning so will try regular diet. No signs of operative complication on CT. Will continue IV fluids until UOP picks up and urine becomes grain processor. He's currently passing flatus. Will go slow on advancing diet today. Possibly home tomorrow if he does well today/tonight. 04/04/19: Doing well. No recurrence of abdominal pain. Tolerating regular diet. He's had 2 BMs. Will d/c to home. (2) Status post appendectomy Status: Chronic (3) Acute appendicitis Status: Resolved Departure Discharge to: Home, Self Care Discharge Instructions Home Meds Active Scripts Docusate Sodium (COLACE) 100 Mg Capsule, 1 CAP PO BID, #30 CAP 0 Refills TAKE WITH A FULL GLASS OF WATER Prov:MICHELE BARRETT MD 04/02/19 Tramadol Hcl (TRAMADOL HCL) 50 Mg Tablet, 1 TAB PO Q4H PRN for PAIN, #14 TAB 0 Refills Prov:MICHELE BARRETT MD 04/02/19 Reported Medications Cyclobenzaprine Hcl (CYCLOBENZAPRINE HCL) 10 Mg Tablet, 10 MG PO PRN 04/01/19 Sumatriptan Succinate (IMITREX) 25 Mg Tablet, 25 MG PO ONCE PRN for MIGRAINE 04/01/19 Amphet Asp/Amphet/D-Amphet (ADDERALL 20 MG TABLET) 20 Mg Tablet, 20 MG PO QDAY 04/01/19 Follow up Referrals: General Surgery - 04/10/19 @ Surgery, General with MCIHELE BARRETT MD Follow up with Dr. Barrett/Parth on Saturday04/10/19, at 11:45am as previously scheduled. Diet: Regular Activity: As Tolerated Problem Qualifiers (1) Acute appendicitis: Acute appendicitis type: with localized peritonitis Appendicitis gangrene presence: without gangrene Appendicitis perforation presence: without perforation Appendicitis abscess presence: without abscess Qualified Codes: K35.30 - Acute appendicitis with localized peritonitis, without perforation or gangrene MICHELE BARRETT MD Apr 04, 2019 08:41
[2019-04-04] MEDS: DOCUSATE SODIUM 100 MG CAP PO SCH (08:55)
[2019-04-04] MEDS: FAMOTIDINE 20 MG TAB PO SCH (08:55)
[2019-04-04] MEDS: ENOXAPARIN 40 MG/0.4ML SYR SC SCH (09:00)
[2019-04-04] MEDS: PATIENT'S OWN MED PO SCH (09:00)
== END 2019-04-04 08:38 | disposition home or self-care (01) ==
LOC: ER 21:46 → MED 04-03 00:26 → INTOOBSV 04-03 00:26
PROVIDERS: ADMIT Surgery; ATTEND Surgery
DX: K91.89 Other postprocedural complications and disorders of digestive system (principal); R06.00 Dyspnea, unspecified; Z98.890 Other specified postprocedural states
CPT/HCPCS: 36415; 74177; 82150; 83605; 83690; 85025; 94640; 96361; 96372; 96374; 96375; 99284; G0378; J1170; J1650; J2405; J3010; J7030; J7613; Q9967; 82040; 82247; 82310; 82374; 82435; 82565; 82947; 84075; 84132; 84155; 84295; 84450; 84460; 84520